=== PATIENT | female | born 1965 | race Caucasian/White ===

== ENCOUNTER 2020-11-03 09:51 | Emergency (ER) | payer BC ==
[2020-11-03 09:54] VITALS: BMI 25.0
[2020-11-03] MEDS ORDERED: ACETAMINOPHEN 1000 MG/100 ML BAG IVPB ONE (11:31)
[2020-11-03] MEDS ORDERED: SODIUM CHLORIDE 1,000 ML IV STA (11:31)
[2020-11-03] MEDS ORDERED: ACETAMINOPHEN INJECTION 100 ML IVPB ONE (11:52)
[2020-11-03 11:58] LABS: BASO % 0.7 % (0-2.0); EOS % 2.4 % (0-4.5); HEMATOCRIT 42.4 % (32.4-45.2); HEMOGLOBIN 14.6 GM/dL (10.7-15.3); LYMPH % 21.9 % (8-40); MCH 32.8 pg (25.7-33.7); MCHC 34.4 g/dl (32.0-36.0); MEAN CELL VOLUME 95.3 fl (80-96); MEAN PLT VOLUME 8.6 fl (7.5-11.1); MONO % 8.6 % (3.8-10.2); NEUT % 66.4 % (42.8-82.8); PLATELET COUNT 264 K/MM3 (134-434); RBC 4.45 M/mm3 (3.60-5.2); RDW 13.2 % (11.6-15.6); WHITE BLOOD COUNT 10.1 K/mm3 (4.0-10.0)
[2020-11-03 12:10] LABS: BLOOD UREA NITROGEN 9.8 mg/dL (7-18); CALCIUM 8.8 mg/dL (8.5-10.1)
[2020-11-03 12:11] LABS: ALBUMIN 3.7 g/dl (3.4-5.0)
[2020-11-03 12:14] LABS: CREATININE 0.7 mg/dL (0.55-1.3)
[2020-11-03 12:15] LABS: BILIRUBIN,TOTAL 1.1 mg/dL (0.2-1); TOT PROT 7.8 g/dl (6.4-8.2)
[2020-11-03 12:41] LABS: EPI CELLS 6 /uL (0-25.1); HYALINE CASTS 1 /uL (0-3.1); URINE APPEARANCE CLEAR; URINE BACTERIA 163 /uL (0-1359); URINE BILIRUBIN NEGATIVE (NEGATIVE); URINE COLOR YELLOW; URINE GLUCOSE (UA) NEGATIVE (NEGATIVE); URINE KETONE NEGATIVE (NEGATIVE); URINE LEUK ESTERASE NEGATIVE (NEGATIVE); URINE NITRITE NEGATIVE (NEGATIVE); URINE PROTEIN NEGATIVE (NEGATIVE); URINE RBC 29 /uL (0-23.9); URINE UROBILINOGEN 0.2 mg/dL (0.2-1.0); URINE WBC 5 /uL (0-25.8)
[2020-11-03] MEDS ORDERED: CEFTRIAXONE 1 GM in DEXTROSE 5%-WATER - 100 ML IVPB ONE (14:43)
[2020-11-03] MEDS ORDERED: CEFTRIAXONE 1 GM/50 ML BAG ONE (14:59)
[2020-11-03 15:58] VITALS: BP 128/64; PULSE 60
== END 2020-11-03 15:58 | disposition home or self-care (01) ==
LOC: JER 09:51
PROC: 3E0333Z Introduction of Anti-inflammatory into Peripheral Vein, Percutaneous Approach (ICD-10-PCS; principal; 2020-11-03)
PROC: 3E03329 Introduction of Other Anti-infective into Peripheral Vein, Percutaneous Approach (ICD-10-PCS; 2020-11-03)
PROC: 3E0337Z Introduction of Electrolytic and Water Balance Substance into Peripheral Vein, Percutaneous Approach (ICD-10-PCS; 2020-11-03)
DX: K57.92 Diverticulitis of intestine, part unspecified, without perforation or abscess without bleeding (principal); D25.9 Leiomyoma of uterus, unspecified
CPT/HCPCS: 36415; 74177-TC; 76830-TC; 80053; 81003; 83690; 84703; 85025; 87086; 99285-25; J0131; Q9967

== ENCOUNTER 2021-11-22 09:36 | Emergency (ER) | payer BC ==
[2021-11-22 09:45] VITALS: BP 117/78; PULSE 72; TEMP 98.4; BMI 30.2
== END 2021-11-22 10:50 | disposition left against medical advice (07) ==
LOC: JERFT 09:36 → JER 09:36 → JERFT 10:50
DX: M25.519 Pain in unspecified shoulder (principal)
CPT/HCPCS: 99282-25